=== PATIENT | female | born 1955 | race Caucasian/White ===

== ENCOUNTER → 2019-12-16 17:19 | Outpatient (CLI) | payer BC, SELFPAY ==
--- NOTE | ~2019-12-16 | MM_ITS ---
EXAMINATION: MM screening mark BI w aspen HISTORY: Screening mammogram TECHNIQUE: Craniocaudal and mediolateral oblique 3-D tomosynthesis images were obtained and synthetic 2-D images were generated. CAD analysis was submitted and interpreted. COMPARISON: 10/08/2018, 03/02/2017, 01/10/2016 bilateral digital screening mammogram examinations BREAST PARENCHYMAL COMPOSITION: The breasts are almost entirely fatty. FINDINGS: There is no evidence of suspicious mass, calcification, or architectural distortion to sugg est malignancy in either breast. There has been no suspicious interval change. IMPRESSION: 1. No mammographic evidence of malignancy. 2. Recommend routine screening mammography in one year. BI-RADS Category 1: Negative Reviewed, dictated and finalized at location A. 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
== END ==
PROVIDERS: PCP Family Medicine; Visit Provider Family Medicine
DX: Z12.31 Encounter for screening mammogram for malignant neoplasm of breast (principal)
CPT/HCPCS: 77063; 77067

== ENCOUNTER 2020-04-26 16:49 | Outpatient (CLI) | payer BC, SELFPAY ==
--- NOTE | ~2020-04-26 | XR_ITS ---
EXAMINATION: XR knee RT 3V DATE: 04/26/2020 17:18 INDICATION: Right knee pain. TECHNIQUE: 3 views of right knee were obtained. COMPARISON: None. FINDINGS: Bone alignment is normal. No fracture. There is mild osteoarthritis of medial compartment a nd moderate osteoarthritis of lateral and patellofemoral compartments. No knee joint effusion. There is a 6 mm loose body in the knee joint posteriorly. IMPRESSION: 1. Moderate right knee osteoarthritis. 2. Right knee joint loose body. Reviewed, dictated and finalized at location E.
== END 2020-04-26 16:50 | disposition home or self-care (01) ==
PROVIDERS: PCP Family Medicine; Visit Provider Physician Assistant
DX: M25.569 Pain in unspecified knee (principal); M17.11 Unilateral primary osteoarthritis, right knee; M23.41 Loose body in knee, right knee
CPT/HCPCS: 73562

== ENCOUNTER → 2021-06-10 11:15 | Outpatient (CLI) | payer BC, SELFPAY ==
--- NOTE | ~2021-06-10 | MM_ITS ---
EXAMINATION: MM screening mark BI w aspen HISTORY: Screening TECHNIQUE: Craniocaudal and mediolateral oblique 3-D tomosynthesis images were obtained and synthetic 2-D images were generated. CAD analysis was submitted and interpreted. COMPARISON: Comparison to multiple prior studies sequentially, with oldest reviewed study dated 01/06. BREAST PARENCHYMAL COMPOSITION: The breasts are almost entirely fatty. FINDINGS: There is no evidence of suspicious mass, calcification, or architectural distortion to sugg est malignancy in either breast. There has been no suspicious interval change. IMPRESSION: 1. No mammographic evidence of malignancy. 2. Recommend routine screening mammography in one year. BI-RADS Category 1: Negative Reviewed, dictated and finalized at location A.
== END ==
PROVIDERS: PCP Family Medicine; Visit Provider Family Medicine
DX: Z12.31 Encounter for screening mammogram for malignant neoplasm of breast (principal)
CPT/HCPCS: 77063; 77067

== ENCOUNTER → 2022-04-10 08:35 | Outpatient (CLI) | payer BC, SELFPAY ==
--- NOTE | ~2022-04-10 | XR_ITS ---
EXAMINATION: XR knee LT 2V, XR knee RT 2V DATE: 04/10/2022 09:36 INDICATION: Multiple joint pain TECHNIQUE: 1. Standing anteroposterior and lateral views of the left knee were obtained. 2. Standing anteroposterior and lateral views of the right knee were obtained. COMPARISON: None. FINDINGS: Right knee: Alignment is normal. No fracture or joint effusion. Tricompartmental osteoarthritis with moderate alexei nt space narrowing at the patellofemoral compartment, mild joint space narrowing at the medial compar tment and small marginal osteophytes in all 3 compartments. Left knee: No fracture no joint effusion. Mild left genu valgus with moderate joint space narrowing at the later al compartment. Severe joint space narrowing with remodeling of the articular surfaces at the patello femoral compartment. Small marginal osteophytes at the medial compartment. Prominent subcutaneous susannah icosities along the medial aspect of the left knee. IMPRESSION: 1. Tricompartmental osteoarthritis at the bilateral knees, severe at the left patellofemoral compartm ent and moderate at the lateral compartment of the left knee and patellofemoral compartment of the ri ght knee. Reviewed, dictated and finalized at location B. IMPRESSION: 1. Tricompartmental osteoarthritis at the bilateral knees, severe at the left p atellofemoral compartment and moderate at the lateral compartment of the left k nee and patellofemoral compartment of the right knee.
--- NOTE | ~2022-04-10 | MR_ITS ---
EXAMINATION: MR lumbar spine wo con DATE: 04/10/2022 09:07 INDICATION: Low back pain. TECHNIQUE: Magnetic resonance imaging (MRI) of the lumbar spine was performed without intravenous con trast. Sequences included sagittal T2-weighted FSE, sagittal T2-weighted FS FSE, sagittal T1-weighted FSE, and axial T2-weighted FSE. COMPARISON: Lumbar spine MRI 11/23/2008 FINDINGS: There is 9 degrees levocurvature of thoracolumbar spine. There is a chronic compression fra cture of T12 with 2/5 loss of height. There is mildly decreased disc height at L3-L4. The distal spin al cord signal intensity is normal. The conus medullaris is at L1. The following disc levels are spec ifically discussed: L1-L2: The disc does not extend beyond the endplate margin. There is moderate right and mild left fac et joint osteoarthritis. There is no neural foraminal stenosis. There is no central canal stenosis. L2-L3: The disc is mildly bulging. There is severe bilateral facet joint osteoarthritis. There is mil d bilateral neural foraminal stenosis. There is no central canal stenosis. L3-L4: The disc is bulging and has an annular fissure. There is severe bilateral facet joint osteoart hritis. There is mild bilateral neural foraminal stenosis. There is mild central canal stenosis. L4-L5: The disc does not extend beyond the endplate margin. There is severe bilateral facet joint ost eoarthritis. There is hypertrophy of the ligamentum flavum. There is mild left neural foraminal steno sis. There is mild central canal stenosis. L5-S1: The disc does not extend beyond the endplate margin. There is severe bilateral facet joint ost eoarthritis. There is mild bilateral neural foraminal stenosis. There is no central canal stenosis. IMPRESSION: 1. Mild lumbar spondylosis, stable from 11/23/2008. Reviewed, dictated and finalized at location A.
--- NOTE | ~2022-04-10 | XR_ITS ---
EXAMINATION: XR hand LT 2V, XR wrist LT 2V, XR wrist RT 2V, XR hand RT 2V DATE: 04/10/2022 09:36 INDICATION: Multiple joint pain at the bilateral hands and wrists TECHNIQUE: 1. Posteroanterior and lateral views of the left wrist were obtained. 2. Dorsal palmar and lateral views of the left hand were obtained. 3. Posteroanterior and lateral views of the right wrist were obtained. 4. Dorsal palmar and lateral views of the right hand were obtained. COMPARISON: None. FINDINGS: Ulnar minus variance measuring 3 mm on the left and 2 mm on the right. Alignment is otherwise normal at the bilateral hands and wrists. No fracture. Relatively symmetric polyarticular osteoarthritis the bilateral hands and wrists, severe at the right triscaphe joint, moderate severity at the left trisc aphe joint and left distal radioulnar joints and mild at the left distal radioulnar, bilateral first carpometacarpal and multiple bilateral interphalangeal joints with distal predominance. No erosions t o suggest an inflammatory arthritis. IMPRESSION: 1. 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 Reviewed, dictated and finalized at location B. IMPRESSION: 1. 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 IMPRESSION: 1. 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 IMPRESSION: 1. 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
--- NOTE | ~2022-04-10 | XR_ITS ---
EXAMINATION: XR shoulder LT min 2V DATE: 04/10/2022 09:36 INDICATION: Multiple joint pain TECHNIQUE: 1. AP and transscapular Y views of the left shoulder were obtained. 2. AP and transscapular Y views of the right shoulder were obtained. COMPARISON: None FINDINGS: Normal alignment at both shoulders. No fracture.Mild bilateral glenohumeral and acromioclavicular os teoarthritis. Bilateral subacromial spurs, right greater than left. There is also a tiny heterotopic ossicle along the lateral margin of the right acromion on the origin of the deltoid muscle. Severe lo wer cervical spondylosis with disc height loss and moderate to severe bilateral uncovertebral and fac et osteoarthritis. IMPRESSION: 1. Mild bilateral glenohumeral and acromioclavicular osteoarthritis. 2. Severe lower cervical spondylosis. Reviewed, dictated and finalized at location B.
--- NOTE | ~2022-04-10 | XR_ITS ---
EXAMINATION: XR shoulder RT min 2V DATE: 04/10/2022 09:36 INDICATION: Multiple joint pain TECHNIQUE: 1. AP and transscapular Y views of the left shoulder were obtained. 2. AP and transscapular Y views of the right shoulder were obtained. COMPARISON: None FINDINGS: Normal alignment at both shoulders. No fracture.Mild bilateral glenohumeral and acromioclavicular os teoarthritis. Bilateral subacromial spurs, right greater than left. There is also a tiny heterotopic ossicle along the lateral margin of the right acromion on the origin of the deltoid muscle. Severe lo wer cervical spondylosis with disc height loss and moderate to severe bilateral uncovertebral and fac et osteoarthritis. IMPRESSION: 1. Mild bilateral glenohumeral and acromioclavicular osteoarthritis. 2. Severe lower cervical spondylosis. Reviewed, dictated and finalized at location B.
== END ==
PROVIDERS: PCP Family Medicine; Visit Provider Internal Medicine Rheumatology
DX: M17.0 Bilateral primary osteoarthritis of knee (principal); M19.011 Primary osteoarthritis, right shoulder; M19.012 Primary osteoarthritis, left shoulder; M47.892 Other spondylosis, cervical region; M19.041 Primary osteoarthritis, right hand; M19.042 Primary osteoarthritis, left hand; M19.031 Primary osteoarthritis, right wrist; M19.032 Primary osteoarthritis, left wrist; M47.896 Other spondylosis, lumbar region
CPT/HCPCS: 72148; 73030; 73100; 73120; 73560

== ENCOUNTER 2022-07-25 11:59 | Emergency (ER) | payer BC, SELFPAY ==
--- NOTE | ~2022-07-25 | XR_ITS ---
EXAMINATION: XR forearm RT 2V DATE: 07/25/2022 12:18 INDICATION: Right forearm pain post fall TECHNIQUE: AP an lateral views of the right forearm were obtained. COMPARISON: none FINDINGS: Bone alignment is normal. No fracture. Polyarticular osteoarthritis, severe at the triscaphe joint, m ild to moderate at the first carpometacarpal joint and mild at the right elbow and first metacarpopha langeal joints. Soft tissues are unremarkable. No right elbow joint effusion. IMPRESSION: 1. No acute osseous abnormality. Reviewed, dictated and finalized at location A.
--- NOTE | ~2022-07-25 | XR_ITS ---
EXAMINATION: XR shoulder RT min 2V DATE: 07/25/2022 12:18 INDICATION: Right shoulder pain and limited range of motion post fall TECHNIQUE: AP internally and externally rotated, AP oblique externally rotated and transscapular Y vi ews of the right shoulder were obtained. COMPARISON: None FINDINGS: Normal alignment. No fracture. Mild right glenohumeral and acromioclavicular osteoarthritis.. Anteri or subacromial spur. Minimal enthesopathic ossification along the lateral margin of the acromion. Mod erate to severe cervical spondylosis. Soft tissues are unremarkable. The visualized portions of the l ungs are clear. IMPRESSION: Degenerative skeletal changes in the cervical spine and to lesser degree at the right shoulder. No ac anthony osseous abnormality. Reviewed, dictated and finalized at location A. IMPRESSION: Degenerative skeletal changes in the cervical spine and to lesser degree at the right shoulder. No acute osseous abnormality.
[2022-07-25 12:01] VITALS: BP 185/99; PULSE 70; RESP 18; TEMP 36.6; O2SAT 100
--- NOTE | 2022-07-25 12:45 | ED.FALL ---
HPI - Fall General Chief Complaint: Fall Stated Complaint: fall at work, right shoulder and arm pain Time Seen by Provider: 07/25/22 12:13 Source: patient Mode of arrival: ambulatory Limitations: no limitations History of Present Illness HPI Narrative: Patient is 67 tripped on a rock on the ground while going to work, lost her balance and fell landed on the right upper extremity. Denies any head injury, loss of consciousness, complaining of right arm pain. She denies other injuries. This happened prior to arrival. Related Data Home Medications Medication Instructions Recorded Confirmed calcium carbonate 500 mg calcium 500 mg PO DAILY 01/23/22 (1,250 mg) chewable tablet (Calcium 500) cholecalciferol (vitamin D3) 10 10 mcg PO DAILY 01/23/22 mcg (400 unit) capsule naproxen sodium 220 mg tablet 220 mg PO DAILY 01/23/22 (Aleve) vitamin B complex (B 1 tablet PO DAILY 01/23/22 Complex-Vitamin B12 tablet) Allergies Allergy/AdvReac Type Severity Reaction Status Date / Time No Known Allergies Allergy Verified 07/25/22 12:07 Review of Systems Review of Systems: All systems reviewed & are unremarkable except as noted in HPI and below PMFSH Past Medical History Medical History Arthritis BMI greater than 40 Essential (primary) hypertension Hereditary and idiopathic neuropathy, unspecified Left knee DJD Left knee pain Obesity Pre-diabetes Right knee DJD Valgus deformity, not elsewhere classified, left knee Vitamin D deficiency Surgical History Surgical History Presence of right artificial hip joint Family History Family History Other Family history of alcoholism Family history of elevated blood lipids Social History Social History Smoking status: Never smoker Second hand tobacco smoke exposure: No Alcohol intake: current Drinks per week: 3 Substance use: never Substance use type: does not use Gender identity (if verbalized by the patient): Female Exam Narrative: General appearance: Well-developed, well-nourished Skin: Normal color Head: Normocephalic, nontraumatic Eyes: Clear conjunctiva ENT: Oropharynx normal, ears normal, nose normal Neck: Supple, nontender Chest and respiratory: Airway patent, no respiratory distress, no accessory muscle use Heart: Regular rate/rhythm Abdomen: Soft, nontender, no organomegaly, quiet bowel sounds Vascular: Normal peripheral pulses, normal capillary refill. Musculoskeletal: Slight tenderness right arm laterally, no bruises, no deformity, no swelling slight limited range of motion of right shoulder Neurologic: Alert and oriented ?3, CORE CLEANER is normal as tested, no gross motor deficit Course Vital Signs Vital signs: Vital Signs Temperature 36.6 C 07/25/22 12:01 Pulse Rate 70 07/25/22 12:01 Respiratory Rate 18 07/25/22 12:01 Blood Pressure 185/99 H 07/25/22 12:01 Pulse Oximetry 100 07/25/22 12:01 Temperature 36.6 C 07/25/22 12:01 Pulse Rate 70 07/25/22 12:01 Respiratory Rate 18 07/25/22 12:01 Blood Pressure 185/99 H 07/25/22 12:01 Pulse Oximetry 100 07/25/22 12:01 MDM - Fall Differential Diagnosis Differential diagnosis: Likely other (Right upper extremity fracture) Imaging Data Radiologist's impression: Impressions Forearm X-Ray 07/25/22 12:20 IMPRESSION: 1. No acute osseous abnormality. Shoulder X-Ray 07/25/22 12:21 IMPRESSION: Degenerative skeletal changes in the cervical spine and
[2022-07-25] MEDS: IBUPROFEN 600 MG TABLET PO (12:48)
== END 2022-07-25 13:24 | disposition home or self-care (01) ==
PROVIDERS: Emergency Provider Emergency Medicine; PCP Family Medicine
DX: S40.021A Contusion of right upper arm, initial encounter (principal); I10 Essential (primary) hypertension; R73.03 Prediabetes; M17.0 Bilateral primary osteoarthritis of knee; E55.9 Vitamin D deficiency, unspecified; E66.9 Obesity, unspecified; Z68.41 Body mass index [BMI] 40.0-44.9, adult; Z96.641 Presence of right artificial hip joint; W18.09XA Striking against other object with subsequent fall, initial encounter
CPT/HCPCS: 73030; 73090; 99284; A9270

== ENCOUNTER → 2022-12-14 16:22 | Outpatient (CLI) | payer BC, SELFPAY ==
--- NOTE | ~2022-12-14 | MM_ITS ---
EXAMINATION: MM screening mark BI w aspen HISTORY: Screening TECHNIQUE: Craniocaudal and mediolateral oblique 3-D tomosynthesis images were obtained and synthetic 2-D images were generated. CAD analysis was submitted and interpreted. COMPARISON: Comparison to multiple prior studies sequentially, with oldest reviewed study dated 01/10. BREAST PARENCHYMAL COMPOSITION: The breasts are almost entirely fatty. FINDINGS: There is no evidence of suspicious mass, calcification, or architectural distortion to sugg est malignancy in either breast. There has been no suspicious interval change. IMPRESSION: 1. No mammographic evidence of malignancy. 2. Recommend routine screening mammography in one year. BI-RADS Category 1: Negative Reviewed, dictated and finalized at location A. GER POOL
== END ==
PROVIDERS: PCP Family Medicine; Visit Provider Family Medicine
DX: Z12.31 Encounter for screening mammogram for malignant neoplasm of breast (principal)
CPT/HCPCS: 77063; 77067

== ENCOUNTER 2023-11-29 07:49 | Outpatient (CLI) | payer BC, SELFPAY ==
--- NOTE | ~2023-11-29 | MR_ITS ---
MRI of the lumbar spine Clinical History: Back pain Technique: Axial T2-weighted images, and sagittal T1-weighted, T2-weighted, and T2 fat-sat images wer e acquired. COMPARISON: 04/10/2022 Findings: Stable moderate compression deformity of T12 with intraosseous hemangioma at this level. No acute fracture or sublocation seen in the lumbar spine. Vertebral bodies are unchanged. No suspiciou s bone marrow signal abnormality seen. At L1-L2, there is no disc bulge or herniation. There is mild to moderate facet arthropathy. No centr al canal stenosis or neural foraminal narrowing. At L2-L3, there is no disc bulge or herniation. There is moderate to advanced facet arthropathy. No c entral canal stenosis or neural foraminal narrowing. At L3-L4, there is mild disc bulge with moderate to advanced facet arthropathy. No nikole central jluis l stenosis. There is mild left neural foraminal narrowing. Right neural foramen preserved. At L4-L5, there is mild disc bulge with severe facet arthropathy. There is minimal central canal sten osis. Neural foramina are preserved. At L5-S1, there is no disc bulge or herniation. There is moderate facet arthropathy. No central canal stenosis or neural foraminal narrowing. Paravertebral soft tissues are unremarkable. Impression: Stable, chronic compression fracture deformity of T12. Mild degenerative spondylosis, as above. Reviewed, dictated and finalized at [facility]. LEAD Impression: Stable, chronic compression fracture deformity of T12. Mild degenerative spondylosis, as above.
== END 2023-11-29 07:50 | disposition home or self-care (01) ==
PROVIDERS: PCP Family Medicine; Visit Provider Internal Medicine Rheumatology
DX: M43.06 Spondylolysis, lumbar region (principal); S22.080D Wedge compression fracture of T11-T12 vertebra, subsequent encounter for fracture with routine healing; X58.XXXD Exposure to other specified factors, subsequent encounter
CPT/HCPCS: 72148

== ENCOUNTER 2025-03-06 16:32 | Emergency (ER) | payer BC, SELFPAY ==
--- OUTSIDE RECORDS SUMMARY | 2025-03-06 16:33 | XMS_ITS | Continuity of Care Document ---
Author Name [facility] Organization [facility] Care Team Providers Care Screw Machine Adjuster Automatic Name Role Phone [facility] Unavailable Unavailable Problems Combined list of problems from Department of Defense and Veterans Affairs facilities. It does not include entries that were removed or entered in error. Problem Status Onset Date Problem Type Date of Resolution Comments Source Diagnosis: ICD-10-CM Z23 Encounter for immunization Active Diagnosis [facility] Immunizations Combined list of available immunizations from the Department of Defense and Veterans Affairs facilities. Immunization Series Date Given Administered By Site Reaction Lot Number CVX Code Drug Pad Machine Offbearer Status Comments Source INFLUENZA, SPLIT VIRUS, TRIVALENT, PF 2023 SHASTA DEL ROSARIO LEFT DELTO ID [id number] 140 complet ed [facility] INFLUENZA, HIGH-DOSE, QUADRIVALENT 2022 SHASTA DEL ROSARIO LEFT DELTO ID [id number] A 197 complet ed [facility] AT [facility] INFLUENZA VACCINE, QUADRIVALENT, ADJUVANTED 2021 205 complet ed [facility] INFLUENZA, INJECTABLE, QUADRIVALENT, PRESERVATIVE FREE 2020 150 complet ed [facility] INFLUENZA, INJECTABLE, QUADRIVALENT, PRESERVATIVE FREE 2019 150 complet ed [facility] INFLUENZA, INJECTABLE, QUADRIVALENT, PRESERVATIVE FREE 2018 150 complet ed [facility] INFLUENZA, INJECTABLE, QUADRIVALENT, PRESERVATIVE FREE 2017 150 complet ed [facility] INFLUENZA, INJECTABLE, QUADRIVALENT, PRESERVATIVE FREE 2016 150 complet ed [facility] INFLUENZA, SEASONAL, INJECTABLE, PRESERVATIVE FREE 2015 140 complet ed [facility] INFLUENZA, SEASONAL, INJECTABLE, PRESERVATIVE FREE 2014 140 complet ed [facility] INFLUENZA, UNSPECIFIED FORMULATION 2013 88 complet ed [facility] INFLUENZA, UNSPECIFIED FORMULATION 2012 88 complet ed [facility] INFLUENZA, UNSPECIFIED FORMULATION 2011 88 complet ed [facility] INFLUENZA, UNSPECIFIED FORMULATION 2008 88 complet ed [facility] Encounters Combined list of: 1) Encounters from Department of Veterans Affairs facilities going backup to the last 18 months, not all VA inpatient encounters are included; 2) Encounters from the Department of Defense facilities going backup to 280 months. Location Location Details Encounter Type Encounter Number Reason For Visit Attending Provider ADM Date DC Date Status Disposition Source [facility] [place] [id number] Diagnos is: ICD-10- CM Z23 Encount er for immuniz checo JEOVANY DEL ROSARIO N 09/22 [facility]
--- NOTE | 2025-03-06 16:34 | ED_ITS ---
HPI - Female Genitourinary General Chief complaint: Urogenital-Female Stated complaint: uti Time Seen by Provider: 03/06/25 16:44 Source: patient, RN notes reviewed and old records reviewed Mode of arrival: ambulatory Limitations: no limitations History of Present Illness HPI Narrative: 69-year-old female presents to the [facility] with concerns for UTI. Patient reports since yesterday has some frequency urgency with urination. Patient reports that she times going and very little comes out. Patient denies any pain. Denies any pain, chest pain. No CVA tenderness. No fevers. No treatment prior to arrival Onset (ago): day(s) (1) Related Data Home Medications ?Medication ?Instructions ?Recorded ?Confirmed ?Last Taken ?Type calcium carbonate (Calcium 500) 500 mg PO DAILY 01/23/22 06/27/24 Unknown History cholecalciferol (vitamin D3) 10 10 mcg PO DAILY 01/23/22 06/27/24 Unknown History mcg (400 unit) capsule vitamin B complex (B 1 tablet PO DAILY 01/23/22 06/27/24 Unknown History Complex-Vitamin B12 tablet) duloxetine 30 mg capsule,delayed 60 mg PO DAILY 08/03/22 06/27/24 Unknown History release tramadol 50 mg tablet 50 mg PO DAILY 01/08/24 06/27/24 Unknown History Allergies Allergy/AdvReac Type Severity Reaction Status Date / Time No Known Allergies Allergy Verified 03/06/25 16:35 Review of Systems Review of Systems: All systems reviewed & are unremarkable except as noted in HPI and below Constitutional: Constitutional: Reports no additional constitutional complaints ENT: Reports system reviewed and no additional complaints, except as documented Cardiovascular: Cardiovascular: Reports no additional cardiovascular complaints, Denies chest pain and Denies dyspnea Respiratory: Respiratory: Reports no additional respiratory complaints, Denies chest congestion, Denies cough and Denies dyspnea Genitourinary: Genitourinary: Reports as per HPI Musculoskeletal: Musculoskeletal: Reports no additional musculoskeletal complaints Integumentary/Breasts: Skin/Breast: Reports system reviewed and no additional complaints, except as docu [facility] Past Medical History Medical History HLD (hyperlipidemia) Fibromyalgia Right knee DJD Valgus deformity, not elsewhere classified, left knee BMI greater than 40 Left knee DJD Left knee pain Obesity Arthritis Essential (primary) hypertension Hereditary and idiopathic neuropathy, unspecified Pre-diabetes Vitamin D deficiency Surgical History Surgical History Presence of right artificial hip joint Family History Family History Other Family history of alcoholism Family history of elevated blood lipids Social History Social History Smoking status: Never smoker Second hand tobacco smoke exposure: No Alcohol intake: current Drinks per week: 3 Substance use: never Substance use type: does not use Lack of Transportation: No Lack of Food: Never True Current Housing: I Have Housing Concerned About Future Housing: No Difficulty Paying Gas/Electric Bills: No Difficulty Paying for Meds: No Currently Unemployed: No Education: Master's Degree or Higher Difficulty w/ Childcare or Family Care: No Living arrangements: with family Gender identity (if verbalized by the patient): Female Comments At the time of my signature, I reviewed and agree with the nursing past medical, surgical, social, and family history. There is no relevant family history pertinent to the patient complaint. Exam Const: General: cooperative, healthy appearing, comfortable, no acute distress, well developed, alert and well nourished Nutritional Appearance: well nourished Orientation/consciousness: patient oriented x3 Limitations: no limitations HENMT: Head: normal to inspection Eyes: General: appearance normal, both eyes and all related structures Alignment and Position: alignment normal Neck: Neck: normal visual inspection, full ROM, no lymphadenopathy and no meningeal signs Chest: Chest palpation & inspection: normal inspection of the chest Resp: Effort & Inspection: normal respiratory effort and able to speak in complete sentences Auscultation: clear to auscultation bilaterally, no crackles, no rales, no rhonchi and no wheezes Cardio: Rate: regular rate GI: GI Palp: No abdominal tenderness : General: Yes no CVA tenderness Skin: General skin exam: normal color and no rashes or lesions noted Neuro: General: patient oriented x3, gait normal, moves all extremities and no meningeal signs Cognition (Neuro): normal cognition Speech: normal speech Gait exam (Neuro): Normal gait present Extrem: General: normal to inspection, full ROM, capillary refill normal and normal gait Psych: Appearance: grossly normal and well kempt Mental Status: mental status grossly normal Speech and movement: Normal speech and movement present and Clear speech present Affect: normal affect Attitude: cooperative Course Course Level of Care: Express Care Visit Vital Signs Vital signs: Vital Signs Temperature 97.8 F 03/06/25 16:39 Pulse Rate 67 03/06/25 16:39 Respiratory Rate 16 03/06/25 16:39 Blood Pressure 131/72 03/06/25 16:39 Pulse Oximetry 96 03/06/25 16:39 Oxygen Delivery Room Air 03/06/25 16:39 Temperature 97.8 F 03/06/25 16:39 Pulse Rate 67 03/06/25 16:39 Respiratory Rate 16 03/06/25 16:39 Blood Pressure 131/72 03/06/25 16:39 Pulse Oximetry 96 03/06/25 16:39 Oxygen Delivery Room Air 03/06/25 16:39 Reviewed MDM - Female Genitourinary MDM Narrative Medical decision making narrative: Patient sitting in exam room. Patient is nontoxic vitals are stable. Patient presents with urinary symptoms. Positive leuks positive blood. Will treat with antibiotic. Will also send culture. Patient is appropriate for outpatient treatment with close follow-up Discharge instructions reviewed with patient, as well as provided in writing per nursing staff. The instructions also include specific and strict return/GO TO THE ER as well as f/u information. All questions have been answered, and the patient deny any further questions with discharge and discharge plan. Some parts of this dictation were generated by voice recognition software and may contain typographical and/or grammatical inaccuracies. Differential Diagnosis Differential diagnosis: Likely urinary tract infection and cystitis Lab Data Labs: Lab Results 03/06/25 Range/Units 16:44 POC Urine Color Yellow POC Urine Clarity Clear POC Urine pH 7.0 POC Ur Specif [place] 1.015 POC Urine Protein Negative (Negative) POC Ur Glucose (UA) Negative (Negative) POC Urine Ketones Negative (Negative) POC Urine Blood Trace (Negative) POC Urine Nitrite Negative (Negative) POC Urine Bilirubin Negative (Negative) POC Urine Urobilinogen 1.0 POC U Leukocyte Esteras Trace (Negative) Reviewed Critical Care Time Critical Care Time Critical Care Time: No Discharge Plan Discharge Clinical Impression: Urinary tract infection Qualifiers: Urinary tract infection type: acute cystitis Hematuria presence: with hematuria Qualified Code(s): N30.01 - Acute cystitis with hematuria Patient Disposition: Home Condition: Stable Instructions: Antibiotic Form, Urinary Tract Infection in Women (DC) Additional Instructions: Increased water intake Take Tylenol as needed for pain Take antibiotic as prescribed Today your urine dip showed a probability of a UTI. You have been prescribed an antibiotic. Your urine will be sent to our lab for a culture. If at that time a bacteria grows that is not covered by the antibiotic prescribed you will be notified. Follow-up with primary care For new or worsening symptoms go directly to the emergency room Patient Language: Bengali Prescriptions: New amoxicillin-pot clavulanate 875-125 mg tablet 1 tablet PO Q12H Qty: 10 0RF No Action tramadol 50 mg tablet 50 mg PO DAILY gabapentin 300 mg capsule 300 mg PO QHS Qty: 30 2RF duloxetine 30 mg capsule,delayed release(DR/EC) 60 mg PO DAILY desonide 0.05 % cream 1 applic topical BID Qty: 15 0RF vitamin B complex [B Complex-Vitamin B12] Tablet 1 tablet PO DAILY calcium carbonate [Calcium 500] 500 mg calcium (1,250 mg) tablet,chewable 500 mg PO DAILY cholecalciferol (vitamin D3) 10 mcg (400 unit) capsule 10 mcg PO DAILY hydrochlorothiazide 12.5 mg tablet See Rx Instructions .ROUTE .COMPLEX Qty: 90 2RF Dose Instruction: TAKE 1 TABLET BY MOUTH DAILY Rx Instructions: TAKE 1 TABLET BY MOUTH DAILY metoprolol succinate 50 mg tablet extended release 24 hr 50 mg PO DAILY Qty: 90 2RF atorvastatin 10 mg tablet 10 mg PO DAILY Qty: 30 6RF Wegovy 1.7 mg/0.75 mL pen injector 1.7 mg subcut WEEKLY Qty: 3 1RF felodipine 10 mg tablet extended release 24 hr 10 mg PO DAILY Qty: 30 6RF lisinopril 40 mg tablet See Rx Instructions .ROUTE .COMPLEX Qty: 90 1RF Dose Instruction: TAKE 1 TABLET BY MOUTH DAILY Rx Instructions: TAKE 1 TABLET BY MOUTH DAILY Follow-up/Referrals: Sarita Power MD [Primary Care Provider] - 2 Weeks ([facility] follow-up) Time of Disposition: 16:52
--- OUTSIDE RECORDS SUMMARY | 2025-03-06 16:34 | XMS_ITS | Continuity of Care Document ---
Author Name [facility] Organization [facility] Care Team Providers Care Retanned Leather Roller Name Role Phone [facility] Unavailable Unavailable Problems Combined list of problems from Department of Defense and Veterans Affairs facilities. It does not include entries that were removed or entered in error. Problem Status Onset Date Problem Type Date of Resolution Comments Source Diagnosis: ICD-10-CM Z23 Encounter for immunization Active Diagnosis [facility] Immunizations Combined list of available immunizations from the Department of Defense and Veterans Affairs facilities. Immunization Series Date Given Administered By Site Reaction Lot Number CVX Code Drug Cupola Melter Helper Status Comments Source INFLUENZA, SPLIT VIRUS, TRIVALENT, PF 2023 SHASTA DEL ROSARIO LEFT DELTO ID [id number] 140 complet ed [facility] INFLUENZA, HIGH-DOSE, QUADRIVALENT 2022 SHASTA DEL ROSARIO LEFT DELTO ID [id number] A 197 complet ed [facility] AT [facility] INFLUENZA VACCINE, QUADRIVALENT, ADJUVANTED 2021 205 complet ed [facility] INFLUENZA, INJECTABLE, QUADRIVALENT, PRESERVATIVE FREE 2020 150 complet ed [facility] INFLUENZA, INJECTABLE, QUADRIVALENT, PRESERVATIVE FREE 2019 150 complet ed [facility] INFLUENZA, INJECTABLE, QUADRIVALENT, PRESERVATIVE FREE 2018 150 complet ed [facility] INFLUENZA, INJECTABLE, QUADRIVALENT, PRESERVATIVE FREE 2017 150 complet ed [facility] INFLUENZA, INJECTABLE, QUADRIVALENT, PRESERVATIVE FREE 2016 150 complet ed [facility] INFLUENZA, SEASONAL, INJECTABLE, PRESERVATIVE FREE 2015 140 complet ed [facility] INFLUENZA, SEASONAL, INJECTABLE, PRESERVATIVE FREE 2014 140 complet ed [facility] INFLUENZA, UNSPECIFIED FORMULATION 2013 88 complet ed [facility] INFLUENZA, UNSPECIFIED FORMULATION 2012 88 complet ed [facility] INFLUENZA, UNSPECIFIED FORMULATION 2011 88 complet ed [facility] INFLUENZA, UNSPECIFIED FORMULATION 2008 88 complet ed [facility] Encounters Combined list of: 1) Encounters from Department of Veterans Affairs facilities going backup to the last 18 months, not all VA inpatient encounters are included; 2) Encounters from the Department of Defense facilities going backup to 280 months. Location Location Details Encounter Type Encounter Number Reason For Visit Attending Provider ADM Date DC Date Status Disposition Source [facility] [place] [id number] Diagnos is: ICD-10- CM Z23 Encount er for immuniz checo JEOVANY DEL ROSARIO N 09/22 [facility]
[2025-03-06 16:39] VITALS: BP 131/72; PULSE 67; RESP 16; TEMP 36.6; O2SAT 96
[2025-03-06 16:47] LABS: EDUAAPPEAR Clear; EDUABILI Negative (Negative); EDUABLOOD Trace (Negative); EDUACOLOR1 Yellow; EDUAGLUCOSE Negative (Negative); EDUAKETONE Negative (Negative); EDUALEUKO Trace (Negative); EDUANITRATE Negative (Negative); EDUAPROTEIN Negative (Negative); EDUASPGRAVITY 1.015
== END 2025-03-06 16:54 | disposition home or self-care (01) ==
PROVIDERS: Emergency Provider Nurse Practitioner; PCP Family Medicine
DX: N30.01 Acute cystitis with hematuria (principal); I10 Essential (primary) hypertension; R73.03 Prediabetes; E78.5 Hyperlipidemia, unspecified; M79.7 Fibromyalgia; M17.0 Bilateral primary osteoarthritis of knee; M19.90 Unspecified osteoarthritis, unspecified site; E66.9 Obesity, unspecified; Z68.38 Body mass index [BMI] 38.0-38.9, adult; E55.9 Vitamin D deficiency, unspecified; G60.9 Hereditary and idiopathic neuropathy, unspecified
CPT/HCPCS: 81003; 87086; 87186; 99213; G0463

== ENCOUNTER 2025-06-25 05:57 | Emergency (ER) | payer BC, SELFPAY ==
--- NOTE | ~2025-06-25 | CT_ITS ---
EXAMINATION: CT facial & cervical spine wo DATE: 06/25/2025 06:33 INDICATION: Status post fall downstairs. No loss of consciousness. Trauma to the right side of the fa cial bones. TECHNIQUE: Computed tomography (CT) of the maxillofacial region and cervical spine was performed with out intravenous contrast. The dose-length product (DLP) was 525.74 mGy-cm. Automated exposure control and iterative reconstruction technique were employed. COMPARISON: None FINDINGS: MAXILLOFACIAL CT: No acute maxillofacial fracture. Moderate right frontal scalp hematoma. Paranasal sinuses and right m astoid air cells are pneumatized. Small left mastoid effusion. CERVICAL SPINE CT: Straightening of cervical lordosis. There is degenerative anterolisthesis at C3-4. There is disc narr owing and endplate degenerative change at C4-5, C5-6 and C6-7. Craniovertebral junction within normal limits. There is a sclerotic lesion in T3, likely benign bone island in the absence of known maligna ncy. No evidence for perched facet. Odontoid process is normal. Craniovertebral junction is normal. T here is degenerative anterolisthesis at T2-3. No acute fracture or traumatic malalignment. There is a dvanced multilevel uncinate and facet hypertrophy. IMPRESSION: 1. No acute abnormality of the maxillofacial bones or cervical spine. Reviewed, dictated and finalized at location A.
--- NOTE | ~2025-06-25 | CT_ITS ---
EXAMINATION: CT BRAIN W/O DATE: 06/25/2025 06:31 INDICATION: Status post fall on stairs. TECHNIQUE: Computed tomography (CT) of the head was performed without intravenous contrast. The dose- length product was 681.00 mGy-cm. Automated exposure control and iterative reconstruction technique w ere employed. COMPARISON: No prior studies for comparison. FINDINGS: Normal brain parenchymal volume for age. Normal aguirre-white differentiation. No acute intrac ranial hemorrhage, infarction, mass or mass effect. There is right frontal scalp hematoma. There is i ntracranial atherosclerosis. No ventriculomegaly or midline shift. Midline sagittal images demonstrate a normal corpus callosum, c raniovertebral junction and sella turcica. Basilar cisterns are patent. Paranasal sinuses and mastoids are pneumatized. No depressed skull fractures. IMPRESSION: 1. No acute intracranial abnormality. Reviewed, dictated and finalized at location A.
--- NOTE | ~2025-06-25 | XR_ITS ---
Left ankle Technique: AP, oblique, and lateral views were obtained. Clinical History: Pain Findings: No acute fracture or dislocation is seen. Osseous alignment is anatomic. Ankle mortise and other visualized joint spaces are preserved. Soft tissues are otherwise unremarkable. Impression: Unremarkable left ankle. Reviewed, dictated and finalized at location . Impression: Unremarkable left ankle.
--- OUTSIDE RECORDS SUMMARY | 2025-06-25 06:00 | XMS_ITS | Continuity of Care Document ---
Author Name [facility] Organization [facility] Care Team Providers Care Clinical Quality Analyst Name Role Phone [facility] Unavailable Unavailable Problems Combined list of problems from Department of Defense and Veterans Affairs facilities. It does not include entries that were removed or entered in error. Problem Status Onset Date Problem Type Date of Resolution Comments Source Diagnosis: ICD-10-CM Z23 Encounter for immunization Active Diagnosis [facility] Immunizations Combined list of available immunizations from the Department of Defense and Veterans Affairs facilities. Immunization Series Date Given Administered By Site Reaction Lot Number CVX Code Drug Operations Forester Status Comments Source INFLUENZA, SPLIT VIRUS, TRIVALENT, PF 2023 SHASTA DEL ROSARIO LEFT DELTO ID [id number] 140 complet ed [facility] INFLUENZA, HIGH-DOSE, QUADRIVALENT 2022 SHASTA DEL ROSARIO LEFT DELTO ID [id number] A 197 complet ed [facility] INFLUENZA VACCINE, QUADRIVALENT, ADJUVANTED 2021 205 complet ed [facility] INFLUENZA, INJECTABLE, QUADRIVALENT, PRESERVATIVE FREE 2020 150 complet ed [facility] INFLUENZA, INJECTABLE, QUADRIVALENT, PRESERVATIVE FREE 2019 150 complet ed [facility] INFLUENZA, INJECTABLE, QUADRIVALENT, PRESERVATIVE FREE 2018 150 complet ed [facility] INFLUENZA, INJECTABLE, QUADRIVALENT, PRESERVATIVE FREE 2017 150 complet ed [facility] INFLUENZA, INJECTABLE, QUADRIVALENT, PRESERVATIVE FREE 2016 150 complet ed [facility] INFLUENZA, SEASONAL, INJECTABLE, PRESERVATIVE FREE 2015 140 complet ed [facility] INFLUENZA, SEASONAL, INJECTABLE, PRESERVATIVE FREE 2014 140 complet ed [facility] INFLUENZA, UNSPECIFIED FORMULATION 2013 88 complet ed [facility] INFLUENZA, UNSPECIFIED FORMULATION 2012 88 complet ed [facility] INFLUENZA, UNSPECIFIED FORMULATION 2011 88 complet ed [facility] INFLUENZA, UNSPECIFIED FORMULATION 2008 88 complet ed [facility] Encounters Combined list of: 1) Encounters from Department of Veterans Affairs facilities going backup to the last 18 months, not all VA inpatient encounters are included; 2) Encounters from the Department of Defense facilities going backup to 280 months. Location Location Details Encounter Type Encounter Number Reason For Visit Attending Provider ADM Date DC Date Status Disposition Source [facility] [place] [id number] Diagnos is: ICD-10- CM Z23 Encount er for immuniz checo JEOVANY DEL ROSARIO N 09/22 [facility]
--- OUTSIDE RECORDS SUMMARY | 2025-06-25 06:00 | XMS_ITS | Clinical Summary ---
Author Organization [address] Address [address] [place] [phone] Care Team Providers Care Aircraft Engine Assembler Name Role Phone Sarita Power MD Primary Care Provider [phone] Allergies No known active allergies Medications atorvastatin (LIPITOR) 10 mg tablet Take 1 tablet (10 mg total) by mouth daily 01/15/[address] (CYMBALTA) 60 mg capsule 01/24/2025 Active felodipine (PLENDIL) 10 mg 24 hr tablet Take 1 tablet (10 mg total) by mouth daily 03/15/2025 Active hydroCHLOROthiaz jered 12.5 mg tablet Take 1 tablet (12.5 mg total) by mouth daily 01/15/2025 Active lisinopriL (PRINIVIL,ZESTRI L) 40 mg tablet Take 1 tablet (40 mg total) by mouth daily 01/15/2025 Active metoprolol XL (TOPROL-XL) 50 mg extended release tablet Take 1 tablet (50 mg total) by mouth daily 03/19/2025 Active semaglutide (Ozempic) 0.25 mg or 0.5 mg(2 mg/1.5 mL) pen injector injection Inject 0.25 mg under the skin once a week Active Active Problems Problem Noted Date Diagnosed Date Hyperparathyroidism 04/06/2025 Arthralgia of hip 11/25/2013 Encounters Date Type Department Care Team Description 04/08/2025 Telephone [facility] Diabetes and Endocrinology [address] [place] [phone] Kiana Calvert MD request for last DEXA scan 04/07/2025 Results Follow-Up [facility] [address] [phone] Kiana Calvert MD PTH, Basic metabolic panel, Calcium, ionized, CALCIUM, 24 HOUR URINE (W/ CREATININE) 04/06/2025 8:30 AM CDT Office Visit [facility] Diabetes and Endocrinology [address] [place] [phone] Kiana Calvert MD Hyperparathyroidism (Primary Dx) 04/06/2025 Orders Only [facility] [address] [place] [address] Unknown, Notinfile 04/06/[address] [facility] Diabetes and Endocrinology [address] [place] [phone] Provider, MD Viviana from Last 3 Months Medical History Medical History Date Comments Hyperparathyroidism Fibromyalgia Social History Tobacco Use Types Packs/Day Years Used Date Smoking Tobacco: Never Tobacco Cessation:Counseling Given: Not Answered AUDIT-C Answer Date Recorded Q1: How often do you have a drink containing alc ohol? 2-3 times a week 04/06/2025 Average Number of Drinks Not on file 025 Frequency of Binge Drinking Not on file 03/19 Comments Unknown Sex and Gender Information Value Date Recorded Sex Assigned at Not on file Legal Sex Female 2:27 AM [employer] Gender Identity Not on file Sexual Orientation Not on file Obstetrics History Last Filed Vital Signs Vital Sign Reading Time Taken Comments Blood Pressure 110/80 04/06/2025 8:15 AM CDT Pulse 55 04/06/2025 8:15 AM CDT Temperature - - Respiratory Rate 16 04/06/2025 8:15 AM CDT Oxygen Saturation - - Inhaled Oxygen Concentration - - Weight 100.2 kg (221 lb) 04/06/2025 8:15 AM CDT Height 161.3 cm (5' 3.5) 04/06/2025 8:15 AM CDT Body Mass Index 38.53 04/06/2025 8:15 AM CDT Plan of Treatment Health Maintenance Due Date Last Done Comments Breast Cancer Screening-Mammogram 1955 Colon Cancer Screening-Colonoscopy 1955 Depression Screening 1955 Fall Risk Assessment 1955 Hepatitis C Screening 1955 Osteoporosis Screening-Bone Density Scan 1955 DTaP/Tdap/Td Vaccine (1 - Tdap) 1968 Hepatitis B Screening 1975 Well Visit 65+ 2022 Influenza Vaccine (#1) 2025 4, 08/14/2023, 08/11/2021, Additional history exists Pneumococcal vaccine 65+ Completed 09/21/2022 Zoster Vaccine Completed 04/09/2023, 09/21/2022 Procedures Procedure Name Priority Date/Time Associated Diagnosis Comments CALCIUM, 24 HOUR URINE (W/ CREATININE) Routine 04/14/2025 6:19 AM CDT Hyperparathyroidism SURGICAL PATHOLOGY Routine 04/06/2025 4: 40 PM CDT CALCIUM, IONIZED Routine 04/06/2025 9:23 AM CDT BASIC METABOLIC PANEL Routine 04/06/2025 9:23 AM CDT Hyperparathyroidism PTH Routine 04/06/2025 9:23 AM CDT Hyperparathyroidism from Last 3 Months Results * CALCIUM, 24 HOUR URINE (W/ CREATININE) (04/14/2025 6:19 AM CDT) Calcium/Creatin ine Ratio 103 30 - 275 mg/g creat [facility] Calcium, 24 hour ur 76 mg/24 h [facility] Comment: Reference Range 35-250 Low calcium diet 35-200 Creatinine, 24 hour ur 0.74 0.50 - 2.15 g/24 h [facility] Urine 04/14/2025 6:19 AM CDT 04/14/2025 7:19 PM CDT Narrative [facility] - 04/15/2025 2:37 PM CDT URINE VOLUME: 1850/24 us Kiana Rick MD LAB URINE ORDERABLE S Final Result [facility] [address] [phone] * Surgical pathology (04/06/2025 4:40 PM CDT) Skin, shave biopsy 04/06/2025 4:40 PM CDT 04/08/2025 8:15 AM CDT Narrative 04/09/2025 3:59 PM CDT EPIC results best viewed via link to PDF [facility], [address], [place] [address] [email or web address] Note to Patients: This report may contain a detailed description of human tissue sent by a health care provider to the laboratory for pathologic evaluation. The content of this report is essential for diagnosis and may provide important critical findings. This information may be unfamiliar to patients to review without a medical professional present. It is advised that the patient review this report in the presence of a health care provider who can answer questions and explain the details. FINAL REPORT Patient Information: PATIENT NAME: TSERING ESTEVES SEX: F : 1955 (Age: 69) Specimen Information: COLLECTED: 04/06/2025 RECEIVED: 04/08/2025 REPORTED: 04/09/2025 Submitting Physician Information: Lisa Camacho [facility], [address] [place] [address], DERMATOPATHOLOGY REPORT RESULTS DIAGNOSIS: SKIN, LEFT PROXIMAL POSTERIOR UPPER ARM, SHAVE BIOPSY: JUNCTIONAL MELANOCYTIC NEVUS, LENTIGINOUS TYPE dh/isr By this signature, I attest that the above diagnosis is based upon my personal examination of the slides(and/or other material indicated in the diagnosis). Lynn Miller M.D. Report Electronically Reviewed and Signed Out By Lynn Miller M.D. 04/09/2025 15:59:55 CLINICAL INFORMATION NEOPLASM OF UNCERTAIN BEHAVIOR VS IRRITATED SEBORRHEIC KERATOSIS VS DYSPLASTIC NEVUS. SPECIMEN DATA MICROSCOPIC DESCRIPTION: There is a proliferation of enlarged, relatively uniform melanocytes arranged predominantly as solitary units but also as small nests within the epidermis at the dermo-epidermal junction. There is also reticulated epidermal hyperplasia and hyperpigmentation. (D22.9) GROSS DESCRIPTION: Received in a formalin-containing bottle is a superficial fragment of pale thomsa, finely scaling, and semi-translucent skin measuring 0.6 by 0.4 by 0.1 cm. The surgical margin is inked blue. The specimen is sectioned into 2 pieces and submitted entirely in a single cassette. Due to shrinkage, measurements may be different than those at the time of procedure. djd/dxv ICD-9 A; ZSD.877 Clerical Data A; 65963 The characteristics of special, immunohistochemical, and immunofluorescence stains and in-situ hybridization tests performed by the [facility] were deemed acceptable in ongoing quality nurse measures and in compliance with regulations drawn from the Clinical Laboratory Improvement Act ho3937 (CLIA '88). Control reactions for all stains performed were deemed adequate and appropriate by a pathologist prior to evaluation of patient tissue. Some diagnoses were rendered with the assistance of laboratory-developed tests utilizing analyte-specific reagents; the performance characteristic of these tests were determined by [facility] and are not cleared or approved by the [place] Food an Drug administration. Laboratory developed test may only be performed in a facility that is certified by the [facility] as a high-complexity laboratory under CLIA '88. These tests are used for clinical purposes and are not investigational. us Notinfile Unknown LAB PATHOLOGY ORDERABLES Final Result * Calcium, ionized (04/06/2025 9:23 AM CDT) Calcium, Ionized 5.0 4.7 - 5.5 mg/dL [facility] 04/06/2025 9:23 AM CDT 04/06/2025 9:27 AM CDT us Kiana Rick MD LAB BLOOD ORDERABLE S Final Result [facility] [address] [place] [address] * PTH (04/06/2025 9:23 AM CDT) Parathyroid hormone, intact 57 16 - 77 pg/mL [facility] Comment: Interpretive Guide Intact PTH Calcium ------- Normal Parathyroid Normal Normal Hypoparathyroidism Low or Low Normal Low Hyperparathyroidism Primary Normal or High High Secondary High Normal or Low Tertiary High High Non-Parathyroid Hypercalcemia Low or Low Normal High Blood 04/06/2025 9:23 AM CDT 04/06/2025 9:27 AM CDT us Kiana Rick MD LAB BLOOD ORDERABLE S Final Result [facility] [address] [phone] * Basic metabolic panel (04/06/2025 9:23 AM CDT) Pathologist [facility] Glucose 85 65 - 99 mg/dL [facility] Comment: Fasting reference interval BUN 21 7 - 25 mg/dL [facility] Creatinine 0.83 0.50 - 1.05 mg/dL [facility] eGFR 77 > OR = 60 mL/min/1.7 3m2 [facility] BUN/creat ratio SEE NOTE: 6 - 22 (calc) [facility] Comment: Not Reported: BUN and Creatinine are within reference range. Sodium 136 135 - 146 mmol/L [facility] Potassium, pl 4.3 3.5 - 5.3 mmol/L [facility] Chloride 100 98 - 110 mmol/L [facility] CO2 27 20 - 32 mmol/L [facility] Calcium 9.2 8.6 - 10.4 mg/dL [facility] Blood 04/06/2025 9:23 AM CDT 04/06/2025 9:27 AM CDT us Kiana Rick MD LAB BLOOD ORDERABLE S Final Result Performing Organization Address City/[facility] [address]/ZIP Co de Phone Number [facility] [address] [place] [address] from Last 3 Months Insurance [facility] [employer] [facility] [employer] Care Teams Aircraft Engine Assembler Relationship Specialty Start Date End Date Sarita Power MD PCP - General 05/02/12
--- OUTSIDE RECORDS SUMMARY | 2025-06-25 06:00 | XMS_ITS | Continuity of Care Document ---
Author Organization [facility] Address [address] [place] [id number] Social History Not on File Plan of Treatment Not on file
[2025-06-25 06:04] VITALS: BP 151/97; PULSE 78; RESP 16; TEMP 36.9; O2SAT 100
--- NOTE | 2025-06-25 06:13 | ED.HEATRA ---
HPI - Head Injury General Chief complaint: Head Injury Stated complaint: Fall down 2 steps Time Seen by Provider: 06/25/25 06:04 Source: patient Limitations: no limitations History of Present Illness HPI Narrative: Patient presents after a fall down 2 steps. No loss of consciousness. Struck face and also having pain left ankle, particularly pain with eversion although she states she can ambulate. Has had multiple falls due to neuropathy in bilateral feet. Not on any medications for neuropathy. No loose/broken dentition. No pain meds taken [facility]. Not on anticoagulation. Had epistaxis initially, resolved upon arrival. Related Data Home Medications ?Medication ?Instructions ?Recorded ?Confirmed ?Last Taken ?Type calcium carbonate (Calcium 500) 500 mg PO DAILY 01/23/22 06/27/24 Unknown History cholecalciferol (vitamin D3) 10 10 mcg PO DAILY 01/23/22 06/27/24 Unknown History mcg (400 unit) capsule vitamin B complex (B 1 tablet PO DAILY 01/23/22 06/27/24 Unknown History Complex-Vitamin B12 tablet) duloxetine 30 mg capsule,delayed 60 mg PO DAILY 08/03/22 06/27/24 Unknown History release tramadol 50 mg tablet 50 mg PO DAILY 01/08/24 06/27/24 Unknown History Allergies Allergy/AdvReac Type Severity Reaction Status Date / Time No Known Allergies Allergy Verified 06/25/25 05:58 [facility] Past Medical History Medical History HLD (hyperlipidemia) Fibromyalgia Right knee DJD Valgus deformity, not elsewhere classified, left knee BMI greater than 40 Left knee DJD Left knee pain Obesity Arthritis Essential (primary) hypertension Hereditary and idiopathic neuropathy, unspecified Pre-diabetes Vitamin D deficiency Surgical History Surgical History Presence of right artificial hip joint Family History Family History Other Family history of alcoholism Family history of elevated blood lipids Social History Social History Smoking status: Never smoker Second hand tobacco smoke exposure: No Alcohol intake: current Drinks per week: 3 Substance use: never Substance use type: does not use Lack of Transportation: No Lack of Food: Never True Current Housing: I Have Housing Concerned About Future Housing: No Difficulty Paying Gas/Electric Bills: No Difficulty Paying for Meds: No Currently Unemployed: No Education: Master's Degree or Higher Difficulty w/ Childcare or Family Care: No Living arrangements: with family Gender identity (if verbalized by the patient): Female Exam Narrative: GENERAL: Well-appearing, well-nourished, and in no acute distress. HEAD: Facial swelling EYES: Non injected, non icteric ENT: Dried unilateral epistaxis. Gross auditory acuity intact. No septal hematoma. NECK: Supple. No meningismus. CHEST: Speaking in full sentences. No respiratory distress. HEART: Regular rate and rhythm. . ABDOMEN: Soft, nondistended. No rigidity or guarding. Not peritoneal EXTREMITIES: Normal range of motion. Mild swelling of left ankle though 5/5 strength with inversion/eversion/plantarflexion/dorsiflexion. No TTP of calf/proximal tibia/fibula. SKIN: Warm, dry, no rash. No ecchymosis bottom of foot.. NEURO: No focal deficits. Alert and oriented. Answering questions. Following commands. Normal speech without aphasia or dysarthria. PSYCH: Normal mood and affect. Course Vital Signs Vital signs: Vital Signs Temperature 98.4 F 06/25/25 06:04 Pulse Rate 78 06/25/25 06:04 Respiratory Rate 16 06/25/25 06:04 Blood Pressure 151/97 H 06/25/25 06:04 Pulse Oximetry 100 06/25/25 06:04 Oxygen Delivery Room Air 06/25/25 06:04 Temperature 98.4 F 06/25/25 06:04 Pulse Rate 78 06/25/25 06:04 Respiratory Rate 16 06/25/25 06:04 Blood Pressure 151/97 H 06/25/25 06:04 Pulse Oximetry 100 06/25/25 06:04 Oxygen Delivery Room Air 06/25/25 06:04 MDM - Head Injury MDM Narrative Medical decision making narrative: Patient presents after falling down two steps. Facial pain and had epistaxis (now resolved) as well as left ankle pain. In the emergency department she is afebrile with vital signs notable for hypertension. Imaging as below, negative for acute process. Discharged with multimodal pain medication regimen and advised follow up. Otherwise stable for discharge. Differential Diagnosis Differential diagnosis: Likely epidural hematoma, closed head injury, subarachnoid hematoma, subdural hematoma and other (ankle fracture/dislocation/sprain /strain; considered Shawanda Ontiveros) Imaging Data Radiologist's impression: Impressions Head CT 06/25/25 06:39 IMPRESSION: 1. No acute intracranial abnormality. Head/Cervical Spine/Facial Bones CT 06/25/25 06:42 IMPRESSION: 1. No acute abnormality of the maxillofacial bones or cervical spine. Ankle X-Ray 06/25/25 06:48 Impression: Unremarkable left ankle. Discharge Plan Discharge Clinical Impression: Fall down stairs, Epistaxis due to trauma, Left lateral ankle pain Patient Disposition: Home Condition: Stable Instructions: Antibiotic Form, Ankle Sprain (DC), Nosebleed (ED), P.R.I.C.E. Treatment (ED), Fall Prevention (ED), Ankle Strain (ED) Additional Instructions: No bleeding in the brain or broken skull/bones the neck, bones of the face, or fractured ankle. You will likely continue to be quite sore and achy over the next several days. The combination of medications prescribed may help you balance some rest with staying active and moving. Acetaminophen/Tylenol (maximum 4000 mg per day) is safe to take with NSAIDs (ibuprofen/Motrin) for pain relief. You have also been prescribed a muscle relaxer and a topical patch. For the ankle remember R-I-C-E (rest, ice, compression with breann wrap, and elevate above the level of the heart). Follow-up with primary care physician. Return to the emergency department with any new or worsening symptoms. Patient Language: Singaporean Prescriptions: New lidocaine 4 % adhesive patch,medicated 1 patch topical DAILY PRN (Reason: pain) Qty: 5 0RF methocarbamol 750 mg tablet 750 mg PO HS Qty: 7 0RF ibuprofen 600 mg tablet 600 mg PO TID PRN (Reason: pain) Qty: 30 0RF acetaminophen 500 mg capsule 1,000 mg PO Q6H PRN (Reason: pain) Qty: 30 0RF No Action amoxicillin-pot clavulanate 875-125 mg tablet 1 tablet PO Q12H Qty: 10 0RF tramadol 50 mg tablet 50 mg PO DAILY gabapentin 300 mg capsule 300 mg PO QHS Qty: 30 2RF duloxetine 30 mg capsule,delayed release(DR/EC) 60 mg PO DAILY desonide 0.05 % cream 1 applic topical BID Qty: 15 0RF vitamin B complex [B Complex-Vitamin B12] Tablet 1 tablet PO DAILY calcium carbonate [Calcium 500] 500 mg calcium (1,250 mg) tablet,chewable 500 mg PO DAILY cholecalciferol (vitamin D3) 10 mcg (400 unit) capsule 10 mcg PO DAILY Wegovy 1.7 mg/0.75 mL pen injector 1.7 mg subcut WEEKLY Qty: 3 1RF lisinopril 40 mg tablet See Rx Instructions .ROUTE .COMPLEX Qty: 90 1RF Dose Instruction: TAKE 1 TABLET BY MOUTH DAILY Rx Instructions: TAKE 1 TABLET BY MOUTH DAILY felodipine 10 mg tablet extended release 24 hr 10 mg PO DAILY Qty: 30 6RF atorvastatin 10 mg tablet 10 mg PO DAILY Qty: 90 2RF hydrochlorothiazide 12.5 mg tablet See Rx Instructions .ROUTE .COMPLEX Qty: 90 2RF Dose Instruction: TAKE 1 TABLET BY MOUTH DAILY Rx Instructions: TAKE 1 TABLET BY MOUTH DAILY metoprolol succinate 50 mg tablet extended release 24 hr 50 mg PO DAILY Qty: 90 2RF Follow-up/Referrals: Sarita Power MD [Primary Care Provider] - Stand Alone Forms: Work/School Release IP Time of Disposition: 06:55
--- OUTSIDE RECORDS SUMMARY | 2025-06-25 06:38 | XMS_ITS | Continuity of Care Document ---
Author Name [facility] Organization [facility] Care Team Providers Care Seasoner Hand Name Role Phone [facility] Unavailable Unavailable Problems Combined list of problems from Department of Defense and Veterans Affairs facilities. It does not include entries that were removed or entered in error. Problem Status Onset Date Problem Type Date of Resolution Comments Source Diagnosis: ICD-10-CM Z23 Encounter for immunization Active Diagnosis [facility] Immunizations Combined list of available immunizations from the Department of Defense and Veterans Affairs facilities. Immunization Series Date Given Administered By Site Reaction Lot Number CVX Code Drug [employer] Hat Blocker Status Comments Source INFLUENZA, SPLIT VIRUS, TRIVALENT, PF 2023 SHASTA DEL ROSARIO LEFT DELTO ID [id number] 140 complet ed [facility] INFLUENZA, HIGH-DOSE, QUADRIVALENT 2022 SHASTA DEL ROSARIO LEFT DELTO ID [id number] A 197 complet ed [facility] AT [facility] INFLUENZA VACCINE, QUADRIVALENT, ADJUVANTED 2021 205 complet ed [facility] INFLUENZA, INJECTABLE, QUADRIVALENT, PRESERVATIVE FREE 2020 150 complet ed [facility] INFLUENZA, INJECTABLE, QUADRIVALENT, PRESERVATIVE FREE 2019 150 complet ed [facility] INFLUENZA, INJECTABLE, QUADRIVALENT, PRESERVATIVE FREE 2018 150 complet ed [facility] INFLUENZA, INJECTABLE, QUADRIVALENT, PRESERVATIVE FREE 2017 150 complet ed [facility] INFLUENZA, INJECTABLE, QUADRIVALENT, PRESERVATIVE FREE 2016 150 complet ed [facility] INFLUENZA, SEASONAL, INJECTABLE, PRESERVATIVE FREE 2015 140 complet ed [facility] INFLUENZA, SEASONAL, INJECTABLE, PRESERVATIVE FREE 2014 140 complet ed [facility] INFLUENZA, UNSPECIFIED FORMULATION 2013 88 complet ed [facility] INFLUENZA, UNSPECIFIED FORMULATION 2012 88 complet ed [facility] INFLUENZA, UNSPECIFIED FORMULATION 2011 88 complet ed [facility] INFLUENZA, UNSPECIFIED FORMULATION 2008 88 complet ed [facility] Encounters Combined list of: 1) Encounters from Department of Veterans Affairs facilities going backup to the last 18 months, not all VA inpatient encounters are included; 2) Encounters from the Department of Defense facilities going backup to 280 months. Location Location Details Encounter Type Encounter Number Reason For Visit Attending Provider ADM Date DC Date Status Disposition Source [facility] [place] [id number] Diagnos is: ICD-10- CM Z23 Encount er for immuniz checo JEOVANY DEL ROSARIO N 09/22 [facility]
--- OUTSIDE RECORDS SUMMARY | 2025-06-25 06:38 | XMS_ITS | Clinical Summary ---
Author Organization [address] Address [address] [place] [id number] Care Team Providers Care Hoistman Name Role Phone Sarita Power MD Primary Care Provider [phone] Allergies No known active allergies Medications atorvastatin [...] Type Department Care Team Description 04/08/2025 Telephone [facility] Diabetes and Endocrinology [address] [place] [phone] Kiana Calvert MD request for last DEXA scan 04/07/2025 Results Follow-Up [facility] [address] [phone] Kiana Calvert MD PTH, Basic metabolic panel, Calcium, ionized, CALCIUM, 24 HOUR URINE (W/ CREATININE) 04/06/2025 8:30 AM CDT Office Visit [facility] Diabetes and Endocrinology [address] [place] [phone] Kiana Calvert MD Hyperparathyroidism (Primary Dx) 04/06/2025 Orders Only [facility] [address] [place] [address] Unknown, Notinfile 04/06/2025 Orders Only [facility] Diabetes and Endocrinology [address] [place] [phone] Provider, MD Viviana from Last 3 [...] on file 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 Note to Patients: This report may contain [...] REPORTED: 04/09/2025 Submitting Physician Information: Lisa Camacho [facility], [address] [place] [address], DERMATOPATHOLOGY REPORT RESULTS DIAGNOSIS: SKIN, LEFT PROXIMAL [...] bottle is a superficial fragment of pale thomas, finely scaling, and semi-translucent skin measuring 0.6 by 0.4 by 0.1 cm. The surgical margin is inked blue. The specimen is sectioned into 2 pieces and submitted entirely in a single cassette. Due to shrinkage, measurements may be different than those at the time of procedure. djd/dxv ICD-9 A; ZSD.877 Clerical Data A; 90809 The characteristics of special, immunohistochemical, and immunofluorescence stains and in-situ hybridization tests performed by the [facility] were deemed acceptable in ongoing senior supplier quality engineer measures and in compliance with regulations drawn from the Clinical Laboratory Improvement Act nb6233 (CLIA '88). Control reactions for all stains performed were deemed adequate and appropriate by a pathologist prior to evaluation of patient tissue. Some diagnoses were rendered with the assistance of laboratory-developed tests utilizing analyte-specific reagents; the performance characteristic of these tests were determined by [facility] and are not cleared or approved by the [place] Food an Drug administration. Laboratory developed test may only be performed in a facility that is certified by the [facility] as a high-complexity laboratory under CLIA '88. These tests are used for clinical purposes and are not investigational. us Notinfile Unknown LAB PATHOLOGY ORDERABLES Final Result * Calcium, ionized (04/06/2025 9:23 AM CDT) Calcium, Ionized 5.0 4.7 - 5.5 mg/dL [facility] 04/06/2025 9:23 AM CDT 04/06/2025 9:27 AM CDT us Kiana Rick MD LAB BLOOD ORDERABLE S Final Result [facility] [address] [place] [address] * PTH (04/06/2025 9:23 AM CDT) Parathyroid [...] MD LAB BLOOD ORDERABLE S Final Result [facility] [address] [id number] * Basic metabolic panel (04/06/2025 9:23 AM CDT) Pathologist [facility] Glucose 85 65 - 99 mg/dL [facility] [...] ORDERABLE S Final Result Performing Organization Address City/[facility]/ZIP Co de Phone Number [facility] [address] [place] [address] from Last 3 Months Insurance [facility] Care Teams Hoistman Relationship Specialty Start Date End Date Sarita Power MD PCP - General 05/02/12
[2025-06-25] MEDS: HYDROcodone/acetaminophen (*CRX) 5-325 MG TABLET 1 TAB PO (06:43)
== END 2025-06-25 07:16 | disposition home or self-care (01) ==
PROVIDERS: Emergency Provider Student in an Organized Health Care Education/Training Program; PCP Family Medicine
DX: S09.93XA Unspecified injury of face, initial encounter (principal); R04.0 Epistaxis; S99.912A Unspecified injury of left ankle, initial encounter; I10 Essential (primary) hypertension; E78.5 Hyperlipidemia, unspecified; E55.9 Vitamin D deficiency, unspecified; R73.03 Prediabetes; G60.9 Hereditary and idiopathic neuropathy, unspecified; M79.7 Fibromyalgia; M17.0 Bilateral primary osteoarthritis of knee; Z96.641 Presence of right artificial hip joint; W10.9XXA Fall (on) (from) unspecified stairs and steps, initial encounter; Z79.899 Other long term (current) drug therapy
CPT/HCPCS: 70450; 70486; 72125; 73610; 99284; A9270